=== PATIENT | male | born 1935 | race Caucasian/White ===

== ENCOUNTER → 2016-07-11 | Outpatient (CLI) | payer MEDICARE, BC ==
[~2016-07-11] MED LIST: ASPIRIN (CHILDR81 MG PO; CORDARONE,PACE200 MG PO; ELIQUIS5 MG PO; FISH OIL1000 MG PO; FOLIC ACID0.8 MG PO; LASIX20 MG PO; LEVOTHROID(SYN75 MCG PO; NORVASC2.5 MG PO; THERA-VITE W/ B1 TAB PO; VITAMIN D1000 UNI1 PO; ZOCOR10 MG PO
== END | disposition disaster alternative care site (69) ==
LOC: GRAD 07-01 09:30
DX: E03.9 Hypothyroidism, unspecified (principal)
CPT/HCPCS: A9516

== ENCOUNTER → 2016-07-12 | Outpatient (CLI) | payer MEDICARE, BC | END | disposition disaster alternative care site (69) | LOC: GRAD 09:26 | DX: J44.9 Chronic obstructive pulmonary disease, unspecified (principal); I25.10 Atherosclerotic heart disease of native coronary artery without angina pectoris; I51.7 Cardiomegaly; R91.1 Solitary pulmonary nodule; R53.83 Other fatigue ==

== ENCOUNTER 2016-10-04 07:47 | Outpatient (CLI) | payer MEDICARE, BC ==
[~2016-10-04] VITALS: Ht 180.3 cm; Wt 85.5 kg
--- NOTE | ~2016-10-04 | CATH ---
Cardiac Diagnostic Report Demographics Patient Name OLVIN Reid Gender Male Date of 1935 Age 81 year(s) Patient Number [id number] Date of Study 10/04/2016 Visit Number [id number] Room Number G6399 [place] [id number] Ht 180.34 cm Wt 85.5 kg Referring Inocente Reid Primary Physician Physician DAYAMI Boateng MD Secondary Physician Physician Diagnostic John Paul Boateng MD Assisting Physician Physician Interventional Physician Associate Attorney Physician Findings and Conclusions Diagnostic Findings and Conclusion Non-obstructive CAD. Intermediate RCA lesion. Diagnostic Recommendations Medical therapy. Procedure Description The patient was brought to the diagnostic cardiac catheterization-EP laboratory in the fasting, non-sedated state. Informed consent was obtained in the written and verbal form after the risks and benefits were explained. The patient had no further questions and agreed to proceed. The planned puncture-incision site(s) were shaved and prepped with ChloraPrep and draped in the usual sterile manner. Conscious sedation, supplemental oxygen, and pain control medications were delivered by a registered nurse under physician guidance. Surface ECG rhythm, blood pressure measurement, and pulse oximetry were monitored throughout the procedure. Arterial access. The access site was infiltrated with lidocaine. The vessel was entered with the Seldinger technique. A sheath was advanced into the vessel and used for catheter placement. Selective left coronary angiography. A catheter was advanced into the left coronary vessel ostium under Fluoroscopic guidance. Contrast was injected by hand. Images were obtained in multiple projections. Selective right coronary angiography. A catheter was advanced into the right coronary vessel ostium under fluoroscopic guidance. Contrast was injected by hand. Images were obtained in multiple projections. Left heart catheterization. A catheter was advanced across the aortic valve to the left ventricle under fluoroscopic guidance. Resting hemodynamics were obtained. Arterial artery hemostasis was achieved. The patient was transferred to a regular nursing floor via cart accompanied by a nurse. The patient left the laboratory in stable condition. Diagnostic Cath Status: Elective Procedure Procedure Type Diagnostic procedure:Angiography:, Coronary Angios w/[facility] Indications: Angina and Paroxysmal atrial fibrillation. The procedure was explained in detail to the patient. Risks, complications and alternative treatments were reviewed. Written consent was obtained. Medications Reviewed with Patient prior to Procedure. Angiographic Findings Dominance: Right Cardiac Arteries and Lesion Findings LMCA: Large. Plaque. LAD: Medium proximal. Diag 1 small, OK. Lesion on Dist LAD: Distal subsection.50% stenosis . LCx: Single stenosis.OM 1 large, normal. Lesion on Prox CX: Ostial.50% stenosis . RCA: Large, dominant. PL medium, normal. PDA medium, normal. Lesion on Dist RCA: Mid subsection.60% stenosis . Coronary Tree Procedure Data Procedure Date Date: 10/04/2016Start: 10:54 AMEnd: 11:28 AM Entry Locations - Retrograde Percutaneous access was performed through the Right Femoral artery (Primary location). A 6 Fr sheath was inserted. Hemostasis was successfully obtained using Perclose ProGlide (Klein). Closure Comments: Deployed by Ansley White. Procedure Medications Order and Administration + + + +-------+ !Time !Medication !Dosage !Route ! + + + +-------+ !10/04/2016 10:53 AM !Versed !1 mg !I.V. ! + + + +-------+ 10/04/2016 10:53 AM !Fentanyl !50 mcg !I.V. ! + + + +-------+ !10/04/2016 10:57 AM !Versed !1 mg !I.V. ! + + + +-------+ !10/04/2016 10:59 AM !Oxygen !2 l/min !NC ! + + + +-------+ Devices Used - A6 Fr. BS JL 4 Diag. Catheterwas used for:Left coronary angiography. - A6 Fr. BS JR 4 Diag. Catheterwas used for:Right coronary angiography. - A6 Fr. BS Angled Pigtail Diag. Catheterwas used for:LV Pressures. Contrast Material - Isovue 45942 ml Fluoroscopy Time: Diagnostic: 22:42 minutes. Total: 22:42 minutes. Fluoroscopy Dose: Diagnostic: 991 mGy. Total: 991 mGy. Estimated Blood Loss: 4 ml. Medical History Allergies - No known allergies. Risk Factors The patient risk factors include:treated hypercholesterolemia, hypertension, last creatinine: 1.2 mg/dl, creatinine clearance: 56.41 ml/min, dyslipidemia and prior heart failure . Admission Data Admission Date: 10/04/2016 Admission Time: 07:47 AM Admit Source: Other Insurance Payors: Medicare. Admission Medications + +------+-------+ + + + + !Medication!Dosage!Times !Last !Last !Administered !Comments ! ! ! !Per Day!Delivery !Delivery ! ! ! ! ! ! !Date !Time ! ! ! + +------+-------+ + + + + !Aspirin ! ! ! ! ! ! ! !(any) ! ! ! ! ! ! ! + +------+-------+ + + + + !Statin ! ! ! ! ! ! ! !(any) ! ! ! ! ! ! ! + +------+-------+ + + + + Clinical Evaluation Leading to Procedure - The patient's CAD presentation was assessed as: Unstable angina. - The patient's anginal syndrome during the past two weeks was assessed as: Class III according to the [place] Cardiovascular Society Classification System (CCS). - The patient has been in a state of heart failure within the past two weeks. - The patient's heart failure status was assessed as NYHA Class I. Hemodynamics Condition: Rest O2 Consumption: Estimated: 234.03Heart Rate: 70 bpm Pressures (mmHg) +-----+ + !Site !Pressure ! +-----+ + !AO !160/73 (104) ! +-----+ + !LV !147/5 ,15 ! +-----+ + !LV !150/5 ,14 ! +-----+ + !AO !153/59 (97) ! +-----+ + !LV !150/5 ,15 ! +-----+ + Valve Gradients and Areas + +---------+---------+---------+ +---------+ + !Valve !Peak !Mean !Area !Index !Flow !Source ! + +---------+---------+---------+ +---------+ + !Aortic !0 !0 ! ! ! ! ! + +---------+---------+---------+ +---------+ + !Aortic !0 !0 ! ! ! ! ! + +---------+---------+---------+ +---------+ + Shunts Oxygen Values O2 Capacity 176.8 O2 Consumption 234.03 Discharge Data Discharge Date: 10/04/2016 Hospital Status: Outpatient Signatures dtt: Kilo Coker (cardio) dtd: 10/04/16 1054 Physician Self Edit
[~2016-10-04 07:47] MED LIST changes: -NORVASC2.5 MG PO
[2016-10-04] MEDS ORDERED: NORVASC2.5 MG PO (13:17)
== END 2016-10-04 14:50 | disposition disaster alternative care site (69) ==
LOC: GCAT 07:47 → GPCU 07:47 → GPOC 08:00 → GCAT 14:50 → GPOC 15:00
PROC: 4A023N7 Measurement of Cardiac Sampling and Pressure, Left Heart, Percutaneous Approach (ICD-10-PCS; principal; 2016-10-04)
PROC: B216YZZ Fluoroscopy of Right and Left Heart using Other Contrast (ICD-10-PCS; 2016-10-04)
DX: I25.110 Atherosclerotic heart disease of native coronary artery with unstable angina pectoris (principal); E78.00 Pure hypercholesterolemia, unspecified; I10 Essential (primary) hypertension; E78.5 Hyperlipidemia, unspecified
CPT/HCPCS: C1760; J0583; J1644; J2001; J2250; J3010; J7030; J7060

== ENCOUNTER → 2016-10-24 | Outpatient (CLI) | payer MEDICARE, BC ==
[~2016-10-24] MED LIST changes: +NORVASC2.5 MG PO
[2016-10-24 11:09] LABS: BICARBONATE 23.3 mmol/L (18.0-23.0); PCO2 32 mmHg (35-45); PO2 98 mmHg (80-90)
== END | disposition disaster alternative care site (69) ==
LOC: GRTH 09:00
PROVIDERS: Internal Medicine Critical Care Medicine
DX: J44.9 Chronic obstructive pulmonary disease, unspecified (principal)